=== PATIENT | male | born 1990 | race Two or more races ===

== ENCOUNTER 2019-01-04 14:23 | Emergency (ER) | payer SELFPAY ==
[~2019-01-04] VITALS: Ht 185.4 cm; Wt 90.7 kg
[2019-01-04 14:36] VITALS: BP 134/88
[2019-01-04] MEDS ORDERED: TETRACAINE/BENZOCAINE/BUTAMBEN 56 GM SPRAY TP ONE (15:00)
[2019-01-04] MEDS ORDERED: LIDOCAINE /MPF 1% VIAL 5 ML VIAL ONE (15:12)
[2019-01-04] MEDS ORDERED: DEXAMETHASONE SOD PHOSPHATE 10 MG/ML VIAL ONE (15:12)
[2019-01-04] MEDS ORDERED: CEFTRIAXONE 500 MG VIAL ONE (15:12)
[2019-01-04] MEDS ORDERED: CEFTRIAXONE 500 MG VIAL IM ONE (15:30)
[2019-01-04] MEDS ORDERED: DEXAMETHASONE SOD PHOSPHATE 4 MG/ML VIAL IM ONE (15:30)
== END 2019-01-04 15:36 | disposition home or self-care (01) ==
LOC: ER 14:31
DX: J36 Peritonsillar abscess (principal); F17.200 Nicotine dependence, unspecified, uncomplicated; Z60.2 Problems related to living alone
CPT/HCPCS: 42700; 82962; 96372 ×2; 99283; J0696; J1100; J3490